=== PATIENT | male | born 1995 | race Caucasian/White ===

== ENCOUNTER 2018-06-21 09:27 | Emergency (ER) | payer MEDICAID ==
[~2018-06-21] VITALS: Ht 170.2 cm; Wt 68.0 kg
[2018-06-21] MEDS ORDERED: DIAZEPAM 2 MG TABLET PO ONE (11:30)
[2018-06-21] MEDS ORDERED: KETOROLAC 60MG/2ML VIAL IM ONE (11:30)
[2018-06-21] MEDS ORDERED: PREDNISONE 20MG TABLET PO ONE (11:30)
[2018-06-21 12:14] LABS: CLARITY URINE CLEAR (CLEAR); COLOR URINE DARK YELLOW (YELLOW); KETONES URINE TRACE (NEGATIVE); LEUKOCYTE ESTERASE URINE NEGATIVE (NEGATIVE); NITRITE URINE NEGATIVE (NEGATIVE); OCCULT BLOOD URINE NEGATIVE (NEGATIVE); PH URINE 5.5 (4.5-8.0); PROTEIN URINE NEGATIVE (NEGATIVE); SPECIFIC GRAVITY URINE 1.028 (1.005-1.030); UROBILINOGEN URINE 0.2 E.U./dL (0.2-1.0)
[2018-06-21 13:25] VITALS: BP 100/63
== END 2018-06-21 14:00 | disposition home or self-care (01) ==
LOC: ER 09:27
DX: S39.012A Strain of muscle, fascia and tendon of lower back, initial encounter (principal); T75.4XXA Electrocution, initial encounter; W86.8XXA Exposure to other electric current, initial encounter; Y93.89 Activity, other specified; Y99.8 Other external cause status; Y92.39 Other specified sports and athletic area as the place of occurrence of the external cause
CPT/HCPCS: 72100; 81003; 93005; 96372; 99284; J1885; J7512